=== PATIENT | male | born 1990 | race African-American/Black ===

== ENCOUNTER 2017-06-03 18:04 | Emergency (ER) | payer SELFPAY | END 2017-06-03 20:02 | disposition home or self-care (01) | LOC: D.ER 18:04 | DX: J11.1 Influenza due to unidentified influenza virus with other respiratory manifestations (principal); F17.200 Nicotine dependence, unspecified, uncomplicated ==

== ENCOUNTER 2018-03-12 08:20 | Emergency (ER) | payer SELFPAY ==
[~2018-03-12] VITALS: Ht 188 cm; Wt 78.5 kg
[2018-03-12 08:26] VITALS: Ht 188 cm; Wt 78.5 kg
[2018-03-12] MEDS ORDERED: BIKTARVY PO (08:47)
[2018-03-12] MEDS ORDERED: LEVAQUIN750 MG PO (10:16)
[2018-03-12 10:37] VITALS: BP 139/86
== END 2018-03-12 10:26 | disposition home or self-care (01) ==
LOC: D.ER 08:20
DX: J40 Bronchitis, not specified as acute or chronic (principal); B20 Human immunodeficiency virus [HIV] disease; R09.89 Other specified symptoms and signs involving the circulatory and respiratory systems; F17.200 Nicotine dependence, unspecified, uncomplicated

== ENCOUNTER 2019-01-06 16:48 | Emergency (ER) | payer MEDICAID ==
[~2019-01-06] VITALS: Ht 188 cm; Wt 75.0 kg
[~2019-01-06 16:48] MED LIST: BIKTARVY PO; LEVAQUIN750 MG PO
[2019-01-06 16:59] VITALS: Ht 188 cm; Wt 75.0 kg
[2019-01-06] MEDS ORDERED: BUTALB-APAP-CA1 EACH PO (17:34)
[2019-01-06 17:58] VITALS: BP 136/76
== END 2019-01-06 17:59 | disposition home or self-care (01) ==
LOC: D.ER 16:48
DX: G43.909 Migraine, unspecified, not intractable, without status migrainosus (principal); F17.200 Nicotine dependence, unspecified, uncomplicated

== ENCOUNTER 2019-01-14 17:51 | Emergency (ER) | payer SELFPAY ==
[~2019-01-14] VITALS: Ht 188 cm; Wt 75.0 kg
[~2019-01-14 17:51] MED LIST changes: +BUTALB-APAP-CA1 EACH PO
[2019-01-14 17:55] VITALS: BP 175/83; Ht 188 cm; Wt 75.0 kg
[2019-01-14] MEDS ORDERED: ZOFRAN ODT4 MG/UDTAB PO (20:34)
[2019-01-14] MEDS ORDERED: BUTALB-APAP-CA1 EACH PO (20:34)
== END 2019-01-14 21:25 | disposition home or self-care (01) ==
LOC: D.ER 17:51
DX: G43.909 Migraine, unspecified, not intractable, without status migrainosus (principal); F17.210 Nicotine dependence, cigarettes, uncomplicated

== ENCOUNTER 2019-01-17 12:56 | Emergency (ER) | payer MEDICAID ==
[~2019-01-17] VITALS: Ht 188 cm; Wt 74.8 kg
[~2019-01-17 12:56] MED LIST changes: +ZOFRAN ODT4 MG/UDTAB PO
[2019-01-17 13:00] VITALS: Ht 188 cm; Wt 74.8 kg
[2019-01-17 16:06] VITALS: BP 110/68
[2019-01-17] MEDS ORDERED: BIKTARVY 50-201 EACH PO (22:35)
[2019-01-18] MEDS ORDERED: BUTALB-APAP-CA1 EACH PO (01:11)
[2019-01-18] MEDS ORDERED: ZOFRAN8 MG PO (01:11)
== END 2019-01-17 16:08 | disposition home or self-care (01) ==
LOC: D.ER 12:56
DX: R51 Headache (principal)

== ENCOUNTER 2019-01-17 22:09 | Emergency (ER) | payer MEDICAID ==
[~2019-01-17] VITALS: Ht 188 cm; Wt 75.0 kg
[2019-01-17 22:32] VITALS: Ht 188 cm; Wt 75.0 kg
[2019-01-17] MEDS ORDERED: BIKTARVY 50-201 EACH PO (22:35)
[2019-01-18] MEDS ORDERED: BUTALB-APAP-CA1 EACH PO (01:11)
[2019-01-18] MEDS ORDERED: ZOFRAN8 MG PO (01:11)
[2019-01-18 01:30] VITALS: BP 128/89
== END 2019-01-18 01:20 | disposition home or self-care (01) ==
LOC: D.ER 22:09
DX: G43.909 Migraine, unspecified, not intractable, without status migrainosus (principal)

== ENCOUNTER 2019-08-02 10:41 | Emergency (ER) | payer MEDICAID ==
[~2019-08-02] VITALS: Ht 188 cm; Wt 78.6 kg
[~2019-08-02 10:41] MED LIST changes: +BIKTARVY 50-201 EACH PO; +ZOFRAN8 MG PO
[2019-08-02 10:51] VITALS: Ht 188 cm; Wt 78.6 kg
[2019-08-02] MEDS ORDERED: ZPAK PO (12:54)
[2019-08-02] MEDS ORDERED: MEDROL DOSE PACK4 MG PO (12:54)
[2019-08-02 14:27] VITALS: BP 122/64
== END 2019-08-02 14:28 | disposition home or self-care (01) ==
LOC: D.ER 10:41
DX: J40 Bronchitis, not specified as acute or chronic (principal); Z72.0 Tobacco use; R51 Headache